=== PATIENT | male | born 1970 | race Caucasian/White ===

== ENCOUNTER 2018-12-30 10:18 | Emergency (ER) | payer SELFPAY ==
[~2018-12-30] VITALS: Ht 177.8 cm; Wt 108.9 kg
[2018-12-30 10:22] VITALS: BP 139/60
[2018-12-30] MEDS ORDERED: HYDROcodone/APAP 5/325 MG 1 TAB TAB PO ONE ×2 (10:50→11:30)
[2018-12-30] MEDS ORDERED: IBUPROFEN 800 MG TAB PO ONE (10:50)
[2018-12-30] MEDS ORDERED: LIDOCAINE MPF 1% 5mL VIAL INJ ONE (10:50)
[2018-12-30] MEDS ORDERED: CYCLOBENZAPRINE 10 MG TAB PO ONE (11:30)
[2018-12-30] MEDS ORDERED: BACITRACIN OINT 500 UNITS/GM PKT TP ONE (11:40)
[2018-12-30 12:58] VITALS: BP 122/50
== END 2018-12-30 12:58 | disposition home or self-care (01) ==
LOC: MED 10:18
DX: S32.019A Unspecified fracture of first lumbar vertebra, initial encounter for closed fracture (principal); S61.411A Laceration without foreign body of right hand, initial encounter; W11.XXXA Fall on and from ladder, initial encounter; Y93.89 Activity, other specified; Y92.89 Other specified places as the place of occurrence of the external cause; Y99.8 Other external cause status
CPT/HCPCS: 12001; 72128; 72131; 73130; 99284; J2001; Q0092

== ENCOUNTER 2019-01-06 16:12 | Emergency (ER) | payer SELFPAY ==
[~2019-01-06] VITALS: Ht 177.8 cm; Wt 108.9 kg
[2019-01-06 16:29] VITALS: BP 143/92
--- NOTE | 2019-01-06 16:34 | NUR ---
PT ambulated to bed 03.
--- NOTE | 2019-01-06 16:40 | NUR ---
BIB . [facility] X[facility] PT IS HERE FOR SUTURE REMOVAL TO RIGHT PALM. PT WAS SEEN HERE IN ER ON 12/30/2018 S/P 8 FT FALL FROM LADDER, LACERATION REPAIRED RIGHT PALM. SUTURES TO RIGHT PALM INTACT, MILD REDNESS WITH SWELLING, NO DISCHARGE NOTED. + CMS TO RIGHT HAND. PT DENIES FEVER, N/V/D. ER TO EVALUATE PT.
--- NOTE | 2019-01-06 17:54 | NUR ---
Dr. Link evaluating patient at bedside.
--- NOTE | 2019-01-06 17:55 | NUR ---
INFORMED CONSENT FOR TDAP IMMUNIZATION OBTAINED.
[2019-01-06 18:16] VITALS: BP 135/81
--- NOTE | 2019-01-06 18:16 | NUR ---
Patient discharged with v/s stable. Written and verbal after care instructions given and explained. Patient verbalized understanding. Ambulatory with steady gait. All questions addressed prior to discharge. Advised to follow up with PMD.
--- NOTE | 2019-01-06 18:18 | NUR ---
CD OF CT RESULTS PROVIDED TO PT
== END 2019-01-06 18:16 | disposition home or self-care (01) ==
LOC: MED 16:12
DX: S61.411D Laceration without foreign body of right hand, subsequent encounter (principal); M48.56XA Collapsed vertebra, not elsewhere classified, lumbar region, initial encounter for fracture; W19.XXXD Unspecified fall, subsequent encounter
CPT/HCPCS: 90471; 90715; 99283